=== PATIENT | male | born 1950 | race Caucasian/White ===

== ENCOUNTER 2022-08-26 19:27 | Emergency (ER) | payer BC ==
[~2022-08-26] VITALS: Ht 188 cm; Wt 100.0 kg
[~2022-08-26 19:27] MED LIST: LORTAB 5/500 501 TAB PO; NORVASC2.5 MG; ZESTRIL 5MG5 MG PO; [UNRECOGNIZED DRUG - OTHER]
[2022-08-26 19:31] VITALS: TEMP 97.8
[2022-08-26] MEDS ORDERED: NORVASC 5MG5 MG/TAB PO (20:15)
[2022-08-26 20:47] VITALS: BP 154/78; PULSE 76
== END 2022-08-26 20:50 | disposition home or self-care (01) ==
LOC: COL.ER 19:27
DX: S61.411A Laceration without foreign body of right hand, initial encounter (principal); Z23 Encounter for immunization; W26.8XXA Contact with other sharp object(s), not elsewhere classified, initial encounter